=== PATIENT | female | born 1935 | race African-American/Black ===

== ENCOUNTER 2018-09-16 06:11 | Day surgery (SDC) | payer MEDICARE, OTHER ==
[~2018-09-16] VITALS: Ht 157.5 cm; Wt 78.2 kg
[2018-09-16] MEDS ORDERED: LIDOCAINE 2% (SDV) 5 ML INJ ONE (07:00)
[2018-09-16 07:05] VITALS: Ht 157.5 cm; Wt 78.2 kg
[2018-09-16] MEDS ORDERED: LOSA1TAB22 PO (07:12)
[2018-09-16 07:46] VITALS: BP 181/81; PULSE 87; RESP 20
[2018-09-16] MEDS ORDERED: ETOMIDATE 20 MG INJ ONE (08:01)
[2018-09-16] MEDS ORDERED: PROPOFOL 20 ML ONE (08:01)
--- NOTE | 2018-09-16 08:17 | PREAC ---
Date/Time of Note Date/Time of Note DATE: 09/16/18 TIME: 08:15 Anesthesia Eval and Record Evaluation Time Pre-Procedure Interview DATE: 09/16/18 TIME: 08:15 Age 83 Sex female NPO: 8 hrs Preoperative diagnosis abdominal pain Planned procedure EGD / Colonoscopy Past Medical History Past Medical History: Includes Cardio: HTN, Dyslipidemia Surgery & Anesthesia Issues No known issue Meds Anticoagulation: No Beta Gifty within 24 hr: No Reason Beta Gifty not given: Pt. not on B-Gifty Reported Medications Losartan-Hydrochlorothiazide (Losartan-HCTZ) 50-12.5 Mg Tab, 1 TAB PO DAILY, TAB 09/16/18 Meds reviewed: Yes Allergies Coded Allergies: No Known Allergy (Unverified , 09/16/18) Allergies Reviewed: Yes Labs/Studies Labs Reviewed: Reviewed by anesthesiologist test: N/A Pre-procedure Exam Last vitals Vital Signs Date Temp Pulse Resp B/P (MAP) Pulse Ox O2 O2 Flow FiO2 Time Delivery Rate 09/16/18 98.4 87 20 181/81 99 Room Air 07:46 (114) Airway: Adequate mouth opening Mallampati: Mallampati II Teeth: Abnormal Lung: Normal Heart: Normal ASA Physical Status ASA physical status: 2 Emergency: None Planned Anesthetic General/MAC: MAC Pre-operative Attestations Prior to commencing anesthesia and surgery, the patient was re-evaluated, there was verification of: *The patient's identity *The results of appropriate recent lab work and preoperative vital signs *The above evaluation not changing prior to induction *Anesthetic plan, risk benefits, alternative and complications discussed with patient/family; questions answered; patient/family understands, accepts and wishes to proceed. DIANA AARON Sep 16, 2018 08:17
[2018-09-16 09:39] VITALS: BP 167/85; RESP 20
--- NOTE | 2018-09-16 09:47 | PAC ---
Date/Time of Note Date/Time of Note DATE: 09/16/18 TIME: 09:47 Post-Anesthesia Notes Post-Anesthesia Note Last documented vital signs Vital Signs Date Temp Pulse Resp B/P (MAP) Pulse Ox O2 O2 Flow FiO2 Time Delivery Rate 09/16/18 20 167/85 98 09:39 (112) 09/16/18 98.4 87 Room Air 07:46 Activity: WNL Respiratory function: WNL Cardiovascular function: WNL Mental status: Baseline Pain reasonably controlled: Yes Hydration appropriate: Yes Nausea/Vomiting absent: Yes DIANA AARON Sep 16, 2018 09:47
--- NOTE | 2018-09-16 21:13 | CONS ---
DATE OF ADMISSION: 09/16/2018 DATE OF CONSULTATION: PATIENT NAME: SIRI PASTOR TYPE OF CONSULTATION: Preoperative gastroenterology. Dear Dr. Andreas Hays: I thank you very much for this kind referral. HISTORY OF PRESENT ILLNESS: Ms. Siri Pastor 83-year-old female patient who has been referred to me for further evaluation of anemia and drop in hematocrit. Her hemoglobin is 11.8. Hematocrit is 35. 9. The patient has noticed a change in the bowel habit. No rectal bleeding, no past history of colo n neoplasm. The patient never had screening colonoscopy. Appetite is good and no weight loss. The patient has got upper abdominal pain and nausea and she has been taking Zantac. She also takes Motri n for arthritis. No history of gallstones or liver disease. PAST MEDICAL HISTORY: She is hypertensive. Not a diabetic. No heart disease, lung problem or kidne y disease. Status post hysterectomy. SOCIAL HISTORY: Nonsmoker. No alcohol abuse. FAMILY HISTORY: No family history of gastrointestinal tract neoplasm. ALLERGIES: NO DRUG ALLERGIES. MEDICATIONS: 1. Losartan 50 mg p.o. daily. 2. Hydrochlorothiazide 12.5 mg p.o. daily. 3. Motrin 800 mg p.o. q.i.d. p.r.n. 4. Zantac 150 mg p.o. daily. PHYSICAL EXAMINATION: VITAL SIGNS: She is 5 feet 2 inches tall and weighs 175 pounds, BMI 33, blood pressure 132/74. HEART: Normal heart sounds. LUNGS: Clear. ABDOMEN: Soft. No masses. Normal bowel sounds. NEUROLOGIC: Normal. IMPRESSION: 1. Anemia and drop in hematocrit. Hemoglobin is 11.8, hematocrit 35.9. 2. Change in the bowel habit. 3. The patient never had screening colonoscopy. 4. Upper abdominal pain and nausea. 5. The patient has been taking Zantac. 6. She is on morphine for arthritis. 7. Hypertension. 8. Status post hysterectomy. 9. Elevated body mass index. PLAN: 1. Follow up with the primary MD for the management of elevated BMI and hypertension. 2. Colonoscopy and upper endoscopy for further evaluation. 3. Because of the patient's age, she will need monitored anesthesia care. The procedures and possible complications are well explained to the patient and the family. They und erstand and consent to the procedures. I thank you once again. With warmest personal regards, Dictated By: LAZ FLYNN/MARTÍNEZ Conf#: [id number] DID#: [id number]
== END 2018-09-16 10:43 | disposition home or self-care (01) ==
LOC: GIL 06:11
PROVIDERS: ATTEND Internal Medicine Gastroenterology
DX: R19.4 Change in bowel habit (principal); K29.30 Chronic superficial gastritis without bleeding; K64.8 Other hemorrhoids; I10 Essential (primary) hypertension; E78.5 Hyperlipidemia, unspecified
CPT/HCPCS: 88305; 88312